=== PATIENT | female | born 1955 | race Caucasian/White ===

== ENCOUNTER → 2018-09-27 10:39 | Outpatient (CLI) | payer OTHER ==
[2013-05-27 08:03] VITALS: BMI 39.2
[~2018-09-27 10:39] MED LIST: BAYER CHEWABLE81 MG PO; CATAPRES0.2 MG PO; COZAAR50 MG PO; DOXYCYCLINE HY100 M2 PO; FLEXERIL10 MG PO; HYDROCHLOROTHIA25 MG PO; PLAVIX75 MG PO; PROAIR HFA8.5 GM INH; ROBAXIN-750750 MG PO; RYBIX ODT50 MG PO; SINGULAIR10 MG; VOLTAREN75 MG PO; ZANTAC150 MG PO; ZYLOPRIM100 MG PO
== END | disposition home or self-care (01) ==
LOC: D.MRI 10:39
PROVIDERS: ATTEND Family Medicine
DX: M25.511 Pain in right shoulder (principal)

== ENCOUNTER 2018-10-23 05:50 | Day surgery (SDC) | payer OTHER ==
[2018-10-18 11:14] LABS: BASOPHILS 0.9 % (0-2); EOSINOPHILS 4.1 % (0-7); HEMATOCRIT 33.9 % (36.0-48.0); HEMOGLOBIN 10.8 g/dL (12-16); MCH 25.3 pg (26.0-34.0); MCHC 31.9 g/dL (31.0-37.0); MCV 79.4 fL (80.0-100.0); MEAN PLATELET VOLUME 8.7 fL (7.4-10.4); MONOCYTES 6.5 % (2-11); NEUTROPHILS 56.5 % (40-80); PLATELET COUNT 360 10x3/uL (130-400); RBC 4.27 10x6/uL (4.00-5.40); RDW 14.2 % (11.5-14.5); WBC 5.7 10x3/uL (4.8-10.8)
[2018-10-18 11:39] LABS: CALC OSMOLALITY 266 mosm/kg (275-300); CARBON DIOXIDE 29.6 mmol/L (21.0-32.0); CHLORIDE - SERUM 98 mmol/L (98-107); CREATININE - SERUM 0.8 mg/dL (0.6-1.3); GLUCOSE 103 mg/dL (74-106); POTASSIUM - SERUM 3.9 mmol/L (3.5-5.1); SODIUM 133 mmol/L (136-145); UREA NITROGEN 15 mg/dL (7-18); eGFR NON AFRICAN AMERICAN 77 mL/min (90-120)
[~2018-10-23] VITALS: Ht 162.6 cm; Wt 100.0 kg
[~2018-10-23 05:50] MED LIST changes: +CYCLOBENZAPRINE10 MG; -FLEXERIL10 MG PO
[2018-10-23 06:24] VITALS: BP 157/79; Ht 162.6 cm; Wt 100.0 kg
--- NOTE | 2018-10-23 10:45 | NUR ---
REC'D FROM [facility]. DRESSING CDI TO RUE. SLING IN USE. ICE PACK TO SHOULDER. FAMILY AT BEDSIDE. ASSISTED TO BATHROOM AND VOIDED WITHOUT DIFFICULTY.
--- NOTE | 2018-10-23 11:35 | NUR ---
FL TRAY BROUGHT TO PATIENT. FAMILY AT BEDSIDE.
--- NOTE | 2018-10-23 11:53 | NUR ---
1050 PT UP WITH ASSIST WO URINATE. VOIDED X1
--- NOTE | 2018-10-23 11:54 | NUR ---
1130 RECIEVED A BREAKFAST TRAY,ATE WELL
--- NOTE | 2018-10-23 12:15 | NUR ---
IV DC'D WITH CATHETER INTACT. WRITTEN AND VERBAL DC INST. GIVEN TO PATIENT. VERBALIZED UNDERSTANDING.
--- NOTE | 2018-10-23 12:35 | NUR ---
DC'D HOME WITH FAMILY VIA PRIVATE VEHICLE. TAKEN TO VEHICLE VIA WC. STABLE AT TIME OF DC.
== END 2018-10-23 12:35 | disposition home or self-care (01) ==
LOC: D.OPS 05:50 → D.PAN 07:30 → D.OPS 10:00 → D.PAN 10:00 → D.OPS 12:35
PROVIDERS: ATTEND Orthopaedic Surgery
DX: M65.811 Other synovitis and tenosynovitis, right shoulder (principal); M19.011 Primary osteoarthritis, right shoulder; M75.41 Impingement syndrome of right shoulder; M75.101 Unspecified rotator cuff tear or rupture of right shoulder, not specified as traumatic; S46.111A Strain of muscle, fascia and tendon of long head of biceps, right arm, initial encounter; M94.211 Chondromalacia, right shoulder; X58.XXXA Exposure to other specified factors, initial encounter; Z01.812 Encounter for preprocedural laboratory examination

== ENCOUNTER → 2020-01-05 23:09 | Outpatient (CLI) | payer OTHER ==
[2018-10-23 06:24] VITALS: BMI 46.4
== END | disposition home or self-care (01) ==
LOC: D.MAMMO 12-19 11:45
PROVIDERS: ATTEND Nurse Practitioner Family
DX: Z12.31 Encounter for screening mammogram for malignant neoplasm of breast (principal)

== ENCOUNTER → 2020-08-23 13:35 | Outpatient (CLI) | payer OTHER ==
[2018-10-23 06:24] VITALS: BMI 46.4
== END | disposition home or self-care (01) ==
LOC: D.HCCECHO 13:35
PROVIDERS: ATTEND Internal Medicine Cardiovascular Disease
DX: I34.0 Nonrheumatic mitral (valve) insufficiency (principal)